=== PATIENT | female | born 1990 | race Hispanic/Latino ===

== ENCOUNTER 2019-03-29 02:24 | Emergency (ER) | payer OTHER ==
[2019-03-29 02:43] VITALS: BP 112/70; PULSE 92; RESP 18; TEMP 97.7; O2SAT 99
[2019-03-29] MEDS ORDERED: Sodium Chloride 0.9% 1,000 ML IV STA (03:03)
[2019-03-29 03:30] LABS: BLOOD UREA NITROGEN 17 mg/dl (7-17); CALCIUM 8.8 mg/dL (8.4-10.2); GFR NON-AFRICAN AMERICAN > 60
[2019-03-29 04:00] LABS: BASO % 0.1 % (0.0-2.0); EOS % 0.1 % (0.0-4.0); MEAN CORPUSCULAR HEMOGLOBIN 31.7 pg (27.0-31.0)
[2019-03-29 04:05] LABS: HEMOGLOBIN 13.9 g/dL (12.0-16.0); MEAN CELL VOLUME 93.6 fl (81.0-99.0); MEAN CORPUSCULAR HGB CONC 33.8 g/dL (33.0-37.0); MONO # 1.4 K/uL (0.0-0.8); PLATELET COUNT 209 K/uL (130-400); RBC 4.38 Mil/uL (3.80-5.20); RED CELL DISTRIBUTION WIDTH 12.6 % (11.5-14.5); WHITE BLOOD COUNT 19.6 K/uL (4.8-10.8)
[2019-03-29 04:06] LABS: LYMPH # 0.4 K/uL (1.0-4.3); LYMPH % 2.1 % (20.0-40.0); MONO % 7.3 % (0.0-10.0); NEUT # 17.8 K/uL (1.8-7.0); NEUT % 90.4 % (50.0-75.0)
[2019-03-29 04:38] LABS: BANDS 6 % (0-2); LYMPHOCYTE 1 % (20-50); MONOCYTE 5 % (0-10); NEUTROPHIL 88 % (42-75); PLATELET ESTIMATE NORMAL (NORMAL); TOTAL CELLS COUNTED 100
--- NOTE | 2019-03-29 04:41 | ED PDOC ---
HPI: Abdomen Time Seen by Provider: 03/29/19 02:56 Chief Complaint (Nursing): Abdominal Pain Chief Complaint (Provider): Abdominal Pain History Per: Patient History/Exam Limitations: no limitations Onset/Duration Of Symptoms: Days (x6) Location Of Pain/Discomfort: Epigastric Associated Symptoms: Nausea, Vomiting, Diarrhea Additional Complaint(s): 29 years old female with no significant PMHx presents to ER for evaluation of multiple episodes of non bloody, non bilious vomiting with watery diarrhea and epigastric pain onset 6 hours ago. Patient reports an hour before vomiting started, she took a pill of plan B and was still feeling nauseous and wants throw up again. PMD: Courtney Cowan Abnormal Vaginal Bleeding: No Past Medical History Reviewed: Historical Data, Nursing Documentation, Vital Signs Vital Signs: Last Vital Signs Temp 97.7 F 03/29/19 02:41 Pulse 92 H 03/29/19 02:41 Resp 18 03/29/19 02:41 BP 112/70 03/29/19 02:41 Pulse Ox 99 03/29/19 02:41 Primary Care Provider: Courtney Cowan - Medical History PMH: No Chronic Diseases - Surgical History Surgical History: No Surg Hx - Family History Family History: States: Unknown Family Hx - Home Medications Home Medications: Ambulatory Orders Medication Instructions Recorded Ondansetron ODT [Zofran ODT] 4 mg PO Q8 PRN #12 odt 03/29/19 - Allergies Allergies/Adverse Reactions: Allergies Allergy/AdvReac Type Severity Reaction Status Date / Time penicillin G Allergy RASH Verified 03/29/19 02:41 Review of Systems ROS Statement: Except As Marked, All Systems Reviewed And Found Negative Gastrointestinal: Positive for: Nausea, Vomiting, Abdominal Pain (epigastic), Diarrhea Physical Exam - Reviewed Nursing Documentation Reviewed: Yes Vital Signs Reviewed: Yes - Physical Exam Appears: Positive for: Well, No Acute Distress Head Exam: Positive for: ATRAUMATIC, NORMOCEPHALIC Skin: Positive for: Normal Color, Warm, Dry Eye Exam: Positive for: Normal appearance, EOMI, PERRL ENT: Positive for: Normal ENT Inspection Neck: Positive for: Normal, Painless ROM, Supple Cardiovascular/Chest: Positive for: Regular Rate, Rhythm. Negative for: Murmur Respiratory: Positive for: Normal Breath Sounds. Negative for: Wheezing Gastrointestinal/Abdominal: Positive for: Soft, Tenderness (epigastric). N egative for: Guarding, Rebound Back: Positive for: Normal Inspection. Negative for: L CVA Tenderness, R CVA Tenderness Extremity: Positive for: Normal ROM. Negative for: Pedal Edema, Swelling Neurological/Psych: Positive for: Awake, Alert, Oriented (x3) - Laboratory Results Result Diagrams: 03/29/19 03:10 03/29/19 03:10 - ECG O2 Sat by Pulse Oximetry: 99 Medical Decision Making Medical Decision Making: Time: 0303 A/P: Viral gastroenteritis --Not concerned for acute appendicitis or other acute intra-abdominal pathology --VBG --BMP --CBC --Pepcid 20 mg IVP --Zofran 4 mg IVP 0500 --Patient is feeling much better, tolerating PO --Leukocytosis likely secondary to vomiting, not concerned for sepsis at this time --Very well appearing upon discharge Scribe Attestation: Documented by Dona Gonzalez acting as a scribe for Micky Maki MD. Provider Scribe Attestation: All medical record entries made by the Scribe were at my direction and personally dictated by me. I have reviewed the chart and agree that the record accurately reflects my personal performance of the history, physical exam, medical decision making, and the department course for this patient. I have also personally directed, reviewed, and agree with the discharge instructions and disposition. Disposition - Clinical Impression Clinical Impression: Gastroenteritis - Patient ED Disposition Is Patient to be Admitted: No Counseled Patient/Family Regarding: Studies Performed, Diagnosis, Need For Followup, Rx Given - Disposition Referrals: Clarissa Viramontes [Outside] Disposition: Routine/Home Disposition Time: 05:17 Condition: IMPROVED Prescriptions: Ondansetron ODT [Zofran ODT] 4 mg PO Q8 PRN #12 odt PRN Reason: Nausea/Vomiting Instructions: Gastroenteritis (ED) Forms: [facility] (Mauritanian)
== END 2019-03-29 05:50 | disposition home or self-care (01) ==
LOC: H.ER 02:24
DX: K52.9 Noninfective gastroenteritis and colitis, unspecified (principal); Z88.0 Allergy status to penicillin
CPT/HCPCS: 80048; 85025; 96361; 96374; 96375; 99283; J2405; J7030